=== PATIENT | male | born 1955 | race Caucasian/White ===

== ENCOUNTER 2017-01-30 18:40 | Emergency (ER) | payer OTHER ==
[2017-01-30 19:18] VITALS: RESP 18
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
--- NOTE | 2017-01-30 20:12 | XR ---
Cervical spine HISTORY: Trauma and pain 5 views of the cervical spine and 6 images Cervical vertebral bodies show preserved height, alignment, and bone mineralization. Minimal retrolis thesis grade [id number], there is associated loss of disc height and spondylosis. Similar changes are prese nt at C6-7 with loss of disc height and spondylosis. Prevertebral soft tissues are normal. Rudimentar y cervical ribs at C7. No significant foraminal encroachment. IMPRESSION: No acute osseous abnormality, degenerative disc disease.
--- NOTE | 2017-01-30 20:13 | XR ---
Thoracic spine HISTORY: Trauma, pain Single frontal view of the thoracic spine Thoracic vertebral bodies show preserved height. Disc spaces appear maintained. Alignment appears nor mal in this frontal view only. Patient is post median sternotomy. IMPRESSION: No acute fracture is evident. Limited exam.
--- NOTE | 2017-01-30 20:15 | XR ---
Lumbar spine HISTORY: Trauma, pain 3 views of the lumbar spine No comparisons Patient is status post posterior lumbar fusion at L3-S1. Intervertebral spacing material at L4-5, L5- S1, there is loss of disc height. Bone mineralization is reduced. There is multilevel spondylosis. Elena mbar vertebral bodies show preserved height and alignment. IMPRESSION: No acute fracture or subluxation.
--- NOTE | 2017-01-30 20:16 | XR ---
Left elbow HISTORY: Trauma and pain 3 views of the left elbow Bone mineralization, joint spaces and alignment are maintained. No joint effusion. IMPRESSION: No fracture or dislocation.
--- NOTE | 2017-01-30 20:16 | XR ---
Right knee HISTORY: Trauma and pain 4 views of the right knee No comparisons Bone mineralization, joint spaces and alignment are maintained. Vascular calcifications are present. IMPRESSION: No fracture or dislocation.
[2017-01-30 20:45] VITALS: BP 139/79; PULSE 89; TEMP 97
== END 2017-01-30 20:46 | disposition home or self-care (01) ==
LOC: EC 18:40
DX: S51.011A Laceration without foreign body of right elbow, initial encounter (principal); M54.2 Cervicalgia; M54.6 Pain in thoracic spine; M25.561 Pain in right knee; Z88.2 Allergy status to sulfonamides; V58.5XXA Driver of pick-up truck or van injured in noncollision transport accident in traffic accident, initial encounter; Y92.488 Other paved roadways as the place of occurrence of the external cause
CPT/HCPCS: 71010; 72020; 72050; 72100; 99284

== ENCOUNTER → 2018-11-11 | Outpatient (CLI) | payer MEDICARE ==
--- NOTE | 2018-11-11 13:15 | US ---
EXAMINATION TYPE: US kidneys/renal and bladder DATE OF EXAM: 11/11/2018 COMPARISON: NONE CLINICAL HISTORY: N18.9 Chronic kidney disease, unspecified. EXAM MEASUREMENTS: Right Kidney: 11.6 x 5.0 x 5.1 cm Left Kidney: 11.1 x 5.9 x 5.2 cm Right Kidney: No hydronephrosis, nephrolithiasis or masses seen Left Kidney: No hydronephrosis, nephrolithiasis or masses seen Bladder: wnl Bilateral Jets seen: Yes IMPRESSION: No acute process.
[2018-11-11 13:33] LABS: Anisocytosis Slight; HCT 41.2 % (39.0-53.0); HGB 13.6 gm/dL (13.0-17.5); MCH 28.9 pg (25.0-35.0); MCHC 33.1 g/dL (31.0-37.0); MCV 87.4 fL (80.0-100.0); Mean Platelet Volume 6.4; Platelet Count 257 k/uL (150-450); RBC 4.71 m/uL (4.30-5.90); RDW 16.1 % (11.5-15.5)
[2018-11-11 13:41] LABS: Albumin 4.4 g/dL (3.5-5.0); Calcium 9.7 mg/dL (8.4-10.2); Phosphorus 2.5 mg/dL (2.5-4.5); Potassium 4.4 mmol/L (3.5-5.1); Total Bilirubin 0.6 mg/dL (0.2-1.3); Total Protein 7.2 g/dL (6.3-8.2)
[2018-11-11 13:46] LABS: Appearance,Urine Clear (Clear); Bilirubin,Urine Negative (Negative); Blood,Urine Negative (Negative); Color,Urine Yellow; Glucose,Urine (UA) 3+ (Negative); Ketones,Urine Negative (Negative); Leukocyte Esterase,Urine Negative (Negative); Nitrite,Urine Negative (Negative); PH, Urine 5.5 (5.0-8.0); Protein,Urine Negative (Negative); Specific Gravity,Urine 1.011 (1.001-1.035); Urobilinogen,Urine <2.0 mg/dL (<2.0)
== END | disposition home or self-care (01) ==
LOC: RADUSWWP 12:39
PROVIDERS: ATTEND Internal Medicine Nephrology
DX: N18.9 Chronic kidney disease, unspecified (principal); D63.1 Anemia in chronic kidney disease; E83.39 Other disorders of phosphorus metabolism; N39.0 Urinary tract infection, site not specified
CPT/HCPCS: 76770; 80053; 81003; 84100; 85027

== ENCOUNTER 2021-11-10 13:36 | Emergency (ER) | payer MEDICARE ==
[2021-11-10 13:50] VITALS: BP 150/83; PULSE 78; RESP 18; TEMP 98
[2021-11-10] MEDS ORDERED: SODIUM CHLORIDE 0.9% 1,000 ML IV ONE (14:31)
--- NOTE | 2021-11-10 14:31 | ED ---
General Adult HPI - General Chief complaint: Urogenital Stated complaint: Urogenital Time Seen by Provider: 11/10/21 13:53 Source: patient, RN notes reviewed Mode of arrival: ambulatory Limitations: no limitations - History of Present Illness Initial comments: 65 year old male presents emergency Department with chief complaint of difficulty urinating. Patient states states had a long history of this in which he's had a few surgeries for urinary strictures. Patient states that a recent he started having further problems in which she's been referred to urologist for his Mohit. Patient states that he is barely had any urine output over the last week he states he just dribbles he constantly feels he has to go he was constipated without alleviated today states that he was able to get some urine output still feels some lower abdominal pressure he doesn't at days had urinary catheters in the past. Patient denies fevers or chills as well as some flank pain. - Related Data Previous Rx's Medication Instructions Recorded Tamsulosin [Flomax] 0.4 mg PO DAILY #20 cap 11/10/21 Allergies Allergy/AdvReac Type Severity Reaction Status Date / Time Sulfa (Sulfonamide Allergy Rash/Hives Verified 11/10/21 13:51 Antibiotics) Review of Systems ROS Statement: Those systems with pertinent positive or pertinent negative responses have been documented in the HPI. ROS Other: All systems not noted in ROS Statement are negative. Past Medical History Past Medical History: Diabetes Mellitus, Hypertension Additional Past Medical History / Comment(s): Chronic back pain History of Any Multi-Drug Resistant Organisms: None Reported Past Surgical History: Back Surgery, Coronary Bypass/CABG, Orthopedic Surgery Additional Past Surgical History / Comment(s): Right shoulder surgery Past Psychological History: No Psychological Hx Reported Smoking Status: Never smoker Past Alcohol Use History: None Reported Past Drug Use History: None Reported General Exam Limitations: no limitations General appearance: alert, in no apparent distress Head exam: Present: atraumatic, normocephalic, normal inspection Eye exam: Present: normal appearance, PERRL, EOMI. Absent: scleral icterus, conjunctival injection, periorbital swelling ENT exam: Present: normal exam, normal oropharynx, mucous membranes moist Neck exam: Present: normal inspection, full ROM. Absent: tenderness, meningismus, lymphadenopathy Respiratory exam: Present: normal lung sounds bilaterally. Absent: respiratory distress, wheezes, rales, rhonchi, stridor Cardiovascular Exam: Present: regular rate, normal rhythm, normal heart sounds. Absent: systolic murmur, diastolic murmur, rubs, gallop, clicks GI/Abdominal exam: Present: soft, normal bowel sounds. Absent: distended, tenderness, guarding, rebound, rigid Course Vital Signs 11/10/21 13:46 Temperature 98.0 F Pulse Rate 78 Respiratory 18 Rate Blood Pressure 150/83 O2 Sat by Pulse 99 Oximetry Medical Decision Making - Medical Decision Making Patient's labs unremarkable. Patient's urinalysis does not reveal any evidence of urinary tract infection. Patient is voiding here with no obvious retention. Patient's been having issues with urination was offered Dominguez catheter patient declined states that he just needs a refill of his Flomax patient has follow-up with urology this week. - Lab Data Result diagrams: 11/10/21 14:17 11/10/21 14:17 Lab Results 11/10/21 11/10/21 11/10/21 Range/Units 14:17 14:17 14:18 WBC 9.3 (3.8-10.6) k/uL RBC 4.77 (4.30-5.90) m/uL Hgb 14.0 (13.0-17.5) gm/dL Hct 43.3 (39.0-53.0) % MCV 90.9 (80.0-100.0) fL MCH 29.3 (25.0-35.0) pg MCHC 32.3 (31.0-37.0) g/dL RDW 14.0 (11.5-15.5) % Plt Count 241 (150-450) k/uL MPV 7.4 Neutrophils % 77 % Lymphocytes % 16 % Monocytes % 5 % Eosinophils % 1 % Basophils % 0 % Neutrophils # 7.2 (1.3-7.7) k/uL Lymphocytes # 1.5 (1.0-4.8) k/uL Monocytes # 0.5 (0-1.0) k/uL Eosinophils # 0.1 (0-0.7) k/uL Basophils # 0.0 (0-0.2) k/uL Sodium 136 L (137-145) mmol/L Potassium 3.8 (3.5-5.1) mmol/L Chloride 101 (98-107) mmol/L Carbon Dioxide 24 (22-30) mmol/L Anion Gap 11 mmol/L BUN 15 (9-20) mg/dL Creatinine 0.88 (0.66-1.25) mg/dL Est GFR (CKD-EPI)AfAm >90 (>60 ml/min/1.73 sqM) Est GFR (CKD-EPI)NonAf 90 (>60 ml/min/1.73 sqM) Glucose 279 H (74-99) mg/dL Calcium 9.1 (8.4-10.2) mg/dL Total Bilirubin 0.9 (0.2-1.3) mg/dL AST 17 (17-59) U/L ALT 17 (4-49) U/L Alkaline Phosphatase 71 (38-126) U/L Total Protein 7.0 (6.3-8.2) g/dL Albumin 3.6 (3.5-5.0) g/dL Urine Color Yellow Urine Appearance Clear (Clear) Urine pH 5.5 (5.0-8.0) Ur Specific [place] 1.029 (1.001-1.035) Urine Protein 1+ H (Negative) Urine Glucose (UA) 4+ H (Negative) Urine Ketones Negative (Negative) Urine Blood Negative (Negative) Urine Nitrite Negative (Negative) Urine Bilirubin Negative (Negative) Urine Urobilinogen <2.0 (<2.0) mg/dL Ur Leukocyte Esterase Negative (Negative) Urine RBC <1 (0-5) /hpf Urine WBC 3 (0-5) /hpf Ur Squamous Epith Cells <1 (0-4) /hpf Urine Mucus Few H (None) /hpf Disposition Clinical Impression: BPH (benign prostatic hyperplasia), Urethral stricture Disposition: ADMITTED IP TO THIS [facility] Instructions (If sedation given, give patient instructions): Urinary Retention in Men (ED), Enlarged Prostate (BPH) (ED) Additional Instructions: Please return to the Emergency Department if symptoms worsen or any other concerns. Prescriptions: Tamsulosin [Flomax] 0.4 mg PO DAILY #20 cap Is patient prescribed a controlled substance at d/c from ED?: No Referrals: Brianna Albert MD [Primary Care Provider] - 1-2 days Time of Disposition: 15:44
[2021-11-10 14:36] LABS: Basophils % (A) 0 %; Eosinophils # (A) 0.1 k/uL (0-0.7); Eosinophils % (A) 1 %; HCT 43.3 % (39.0-53.0); Lymphocytes # (A) 1.5 k/uL (1.0-4.8); Lymphocytes % (A) 16 %; MCH 29.3 pg (25.0-35.0); MCHC 32.3 g/dL (31.0-37.0); MCV 90.9 fL (80.0-100.0); Mean Platelet Volume 7.4; Monocytes # (A) 0.5 k/uL (0-1.0); Monocytes % (A) 5 %; Neutrophils # (A) 7.2 k/uL (1.3-7.7); Neutrophils % (A) 77 %; Platelet Count 241 k/uL (150-450); RBC 4.77 m/uL (4.30-5.90); WBC 9.3 k/uL (3.8-10.6)
[2021-11-10 14:42] LABS: ALT 17 U/L (4-49); AST 17 U/L (17-59); African American GFR (CKD) >90 (>60 ml/min/1.73 sqM); Albumin 3.6 g/dL (3.5-5.0); Alkaline Phosphatase 71 U/L (38-126); Anion Gap 11 mmol/L; Blood Urea Nitrogen 15 mg/dL (9-20); Calcium 9.1 mg/dL (8.4-10.2); Carbon Dioxide 24 mmol/L (22-30); Chloride 101 mmol/L (98-107); Glucose 279 mg/dL (74-99); Non-African American GFR(CKD) 90 (>60 ml/min/1.73 sqM); Potassium 3.8 mmol/L (3.5-5.1); Sodium 136 mmol/L (137-145); Total Bilirubin 0.9 mg/dL (0.2-1.3)
[2021-11-10 15:18] LABS: Appearance,Urine Clear (Clear); Bilirubin,Urine Negative (Negative); Blood,Urine Negative (Negative); Color,Urine Yellow; Glucose,Urine (UA) 4+ (Negative); Ketones,Urine Negative (Negative); Leukocyte Esterase,Urine Negative (Negative); Mucus,Urine Few /hpf; Nitrite,Urine Negative (Negative); PH, Urine 5.5 (5.0-8.0); Protein,Urine 1+ (Negative); RBC,Urine <1 /hpf (0-5); Specific Gravity,Urine 1.029 (1.001-1.035); Squamous Epithelial Cell,Urine <1 /hpf (0-4); Urobilinogen,Urine <2.0 mg/dL (<2.0); WBC,Urine 3 /hpf (0-5)
== END 2021-11-10 16:06 | disposition other institution (70) ==
LOC: EC 13:36
DX: N40.0 Benign prostatic hyperplasia without lower urinary tract symptoms (principal); N35.919 Unspecified urethral stricture, male, unspecified site; E11.9 Type 2 diabetes mellitus without complications; I10 Essential (primary) hypertension
CPT/HCPCS: 36415; 51798; 80053; 81001; 85025; 99284